=== PATIENT | female | born 1990 | race African-American/Black ===

== ENCOUNTER 2018-03-27 09:08 | Emergency (ER) | payer SELFPAY ==
[2018-03-27] MEDS ORDERED: MORPHINE 4 MG/ML SYR ONE (09:44)
[2018-03-27] MEDS ORDERED: ONDANSETRON 4 MG/2 ML VIAL ONE (09:44)
[2018-03-27] MEDS ORDERED: HYDROCODONE/APAP 10/325 TAB ONE (10:42)
--- NOTE | 2018-03-27 10:58 | RAD REPORT ---
EXAM DESCRIPTION: RAD - Shoulder Left 2 View - 03/27/2018 9:56 am CLINICAL HISTORY: Fall, shoulder pain COMPARISON: March 2015 TECHNIQUE: Internal and external rotation views of the left shoulder were obtained. FINDINGS: There is no fracture or dislocation. No AC joint separation. No significant degenerative c hange. No calcification in the acromial humeral joint space. No rib or upper lung parenchymal abnorma lity. No acute or suspicious findings. IMPRESSION: Negative two-view left shoulder examination.
--- NOTE | 2018-03-27 11:20 | ER ---
Nurse's Notes [facility] Name: Geoff Sharma Age: 27 yrs Sex: Female : 1990 Arrival Date: 03/27/2018 Time: 09:09 Bed 5 Private MD: Diagnosis: Recurrent dislocation, left shoulder Presentation: 03/27 09:12 Presenting complaint: EMS states: Pt c/o L shoulder dislocation, states that she was ph getting out of bed to answer a phone call, became tangled in the blankets and injured her shoulder, reports hx of L shoulder dislocation. Transition of care: patient was not received from another setting of care. Onset of symptoms was March 27, 2018. Risk Assessment: Do you want to hurt yourself or someone else? Patient reports no desire to harm self or others. Initial Sepsis Screen: Does the patient meet any 2 criteria? No. Patient's initial sepsis screen is negative. Does the patient have a suspected source of infection? No. Patient's initial sepsis screen is negative. Care prior to arrival: Medication(s) given: zofran 4 mg, fentanyl 100 mcg IV initiated. 20 GA, in the right antecubital area. 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 - Family history:: not pertinent. - Social history:: Smoking status: Patient/guardian denies using tobacco. - Ebola Screening: : No symptoms or risks identified at this time. - Hospitalizations: : No recent hospitalization is reported. Screenin:18 Abuse screen: Denies threats or abuse. Denies injuries from another. Nutritional ph screening: No deficits noted. Tuberculosis screening: No symptoms or risk factors identified. Fall Risk None identified. Assessment: 09:18 General: Appears in no apparent distress. uncomfortable, slender, well groomed, ph Behavior is cooperative, appropriate for age, crying. Pain: Complains of pain in left shoulder. Neuro: Level of Consciousness is awake, alert, obeys commands, Oriented to person, place, time, situation. Cardiovascular: Capillary refill < 3 seconds in bilateral fingers Patient's skin is warm and dry. Pulses are palpable in left radial artery. Respiratory: Airway is patent Respiratory effort is even, unlabored. Derm: Skin is intact, is healthy with good turgor, Skin is pink, warm \T\ dry. Musculoskeletal: Circulation, motion, and sensation intact. Range of motion: limited in left shoulder. 10:30 Reassessment: Patient appears in no apparent distress at this time. Patient and/or ph family updated on plan of care and expected duration. Pain level reassessed. Patient is alert, oriented x 3, equal unlabored respirations, skin warm/dry/pink. ERP at bedside to speak w/ pt. 11:49 Reassessment: Patient appears in no apparent distress at this time. Patient and/or ph family updated on plan of care and expected duration. Pain level reassessed. Patient is alert, oriented x 3, equal unlabored respirations, skin warm/dry/pink. Pt reports that pain has decreased to 4/10 (down from 8/10), p[t placed in sling and given instructions to follow up w/ orthopedist, d/c home w/ friend. Vital Signs: 09:16 BP 121 / 72; Pulse 85; Resp 18; Temp 98.2; Pulse Ox 100% on R/A; Weight 65.77 kg; ph Height 5 ft. 3 in. (160.02 cm); 09:45 BP 147 / 105; Pulse 102; Resp 18; Pulse Ox 100% on R/A; ph 10:30 BP 120 / 70; Pulse 87; Resp 16; Pulse Ox 100% on R/A; ph 11:52 BP 118 / 64; Pulse 78; Resp 18; Temp 97.9; Pulse Ox 99% on R/A; Pain 4/10; ph 09:16 Body Mass Index 25.69 (65.77 kg, 160.02 cm) ph ED Course: 09:09 Patient arrived in ED. ss 09:11 Howard Haskins MD is Attending Physician. rn 09:11 Annia Mariee RN is Primary Nurse. ph 09:15 Triage completed. ph 09:18 Arm band placed on. ph 09:18 Maintain EMS IV. Dressing intact. Good blood return noted. Site clean \T\ dry. Gauge \T\ ph site: 20 RAC. 09:19 Patient has correct armband on for positive identification. Bed in low position. Call ph light in reach. Side rails up X2. Pulse ox on. NIBP on. Warm blanket given. 09:56 XRAY Shoulder LEFT 2 view In Process Unspecified. EDMS 10:56 XRAY Shoulder (1 View) In Process Unspecified. EDMS 11:19 Pieter Sutton MD is Referral Physician. rn 11:52 No provider procedures requiring assistance completed. IV discontinued, intact, ph bleeding controlled, No redness/swelling at site. Pressure dressing applied. Sling applied to left arm. Administered Medications: 09:43 Drug: morphine 4 mg Route: IVP; Site: right antecubital; ph 15:57 Follow up: Response: No adverse reaction ph 09:43 Drug: Zofran 4 mg Route: IVP; Site: right antecubital; ph 10:15 Follow up: Response: No adverse reaction ph 10:40 Drug: Dennard 10 mg-325 mg 1 tabs Route: PO; ph 11:15 Follow up: Response: No adverse reaction; Pain is decreased ph Outcome: 11:19 Discharge ordered by MD. rn 11:52 Discharged to home ambulatory, with friend. ph 11:52 Condition: good 11:52 Discharge instructions given to patient, Instructed on discharge instructions, follow up and referral plans. medication usage, Demonstrated understanding of instructions, follow-up care, medications. 11:53 Patient left the ED. ph Signatures: Dispatcher [employer] EDMS Howard Haskins MD MD rn Smirch, Shelby, RN RN ss Hall, Patricia, RN RN ph Corrections: (The following items were deleted from the chart) 11:52 09:45 BP 120 / 70; Pulse 87bpm; Resp 16bpm; Pulse Ox 100% RA; ph ph
--- NOTE | 2018-03-27 11:20 | EDPHYS ---
Physician Documentation [facility] Name: Geoff Sharma Age: 27 yrs Sex: Female : 1990 Arrival Date: 03/27/2018 Time: 09:09 Bed 5 Private MD: ED Physician Howard Haskins HPI: 03/27 09:11 This 27 yrs old Black Female presents to ER via Unassigned with complaints of Shoulder rn Pain. 09:11 The patient or guardian complains of decreased range of motion, pain. left shoulder. rn Onset: The symptoms/episode began/occurred just prior to arrival. Modifying factors: the symptoms are alleviated by nothing. The symptoms are aggravated by movement, rotation of arm. Severity of symptoms: At their worst the symptoms were moderate, in the emergency department the symptoms have improved. The patient has experienced a previous episode. The patient has not recently seen a physician. Got out of bed rapidly, left arm wrapped in blanket, feels like dislocated. . 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 - Family history:: not pertinent. - Social history:: Smoking status: Patient/guardian denies using tobacco. - Ebola Screening: : No symptoms or risks identified at this time. - Hospitalizations: : No recent hospitalization is reported. ROS: 09:11 Constitutional: Negative for fever, chills, and weight loss, MS/Extremity: + left rn shoulder injury Exam: 09:11 Constitutional: This is a well developed, well nourished patient who is awake, alert, rn crying and left arm in splint Neck: Trachea midline, no thyromegaly or masses palpated, and no cervical lymphadenopathy. Supple, full range of motion without nuchal rigidity, or vertebral point tenderness. No Meningismus. Chest/axilla: Normal chest wall appearance and motion. Nontender with no deformity. No lesions are appreciated. MS/ Extremity: Pulses equal, no cyanosis. Neurovascular intact. + painful ROM left shoulder, no clavicular tenderness or crepitus Neuro: Awake and alert, GCS 15, oriented to person, place, time, and situation. Motor strength 5/5 in all extremities. Sensory grossly intact. Vital Signs: 09:16 BP 121 / 72; Pulse 85; Resp 18; Temp 98.2; Pulse Ox 100% on R/A; Weight 65.77 kg; ph Height 5 ft. 3 in. (160.02 cm); 09:45 BP 147 / 105; Pulse 102; Resp 18; Pulse Ox 100% on R/A; ph 10:30 BP 120 / 70; Pulse 87; Resp 16; Pulse Ox 100% on R/A; ph 11:52 BP 118 / 64; Pulse 78; Resp 18; Temp 97.9; Pulse Ox 99% on R/A; Pain 4/10; ph 09:16 Body Mass Index 25.69 (65.77 kg, 160.02 cm) ph MDM: 09:11 Patient medically screened. rn 11:17 Differential diagnosis: Anterior dislocation with fracture, Anterior dislocation rn without fracture, Posterior dislocation with fracture, Posterior dislocation without fracture, humeral head fracture, glenoid fracture, DJD, tendonitis. Data reviewed: vital signs, nurses notes, radiologic studies, plain films, and as a result, I will discharge patient. Counseling: I had a detailed discussion with the patient and/or guardian regarding: the historical points, exam findings, and any diagnostic results supporting the discharge/admit diagnosis, radiology results, the need for outpatient follow up, to return to the emergency department if symptoms worsen or persist or if there are any questions or concerns that arise at home. Special discussion: I discussed with the patient/guardian in detail that at this point there is no indication for admission to the hospital. It is understood, however, that if the symptoms persist or worsen the patient needs to return immediately for re-evaluation. 03/27 09:11 Order name: XRAY Shoulder LEFT 2 view; Complete Time: 11:17 rn 03/27 09:40 Order name: XRAY Shoulder (1 View); Complete Time: 11:29 rn 03/27 11:17 Order name: Sling; Complete Time: 11:53 rn Administered Medications: 09:43 Drug: morphine 4 mg Route: IVP; Site: right antecubital; ph 15:57 Follow up: Response: No adverse reaction ph 09:43 Drug: Zofran 4 mg Route: IVP; Site: right antecubital; ph 10:15 Follow up: Response: No adverse reaction ph 10:40 Drug: [place] 10 mg-325 mg 1 tabs Route: PO; ph 11:15 Follow up: Response: No adverse reaction; Pain is decreased ph Disposition: 03/27/18 11:19 Discharged to Home. Impression: Recurrent dislocation, left shoulder. - Condition is Stable. - Discharge Instructions: Shoulder Dislocation. - Prescriptions for Tylenol- Codeine #3 300-30 mg Oral Tablet - take 1 tablet by ORAL route every 6 hours As needed; 20 tablet. - Medication Reconciliation Form, Thank You Letter, Antibiotic Education, Prescription Opioid Use form. - Follow up: Pieter Sutton MD; When: As needed; Reason: Recheck today's complaints, Re-evaluation by your physician. - Problem is new. - Symptoms have improved. Signatures: Dispatcher [employer] EDMS Howard Haskins MD MD rn MarieeAnnia RN RN Corrections: (The following items were deleted from the chart) 11:53 11:19 03/27/2018 11:19 Discharged to Home. Impression: Recurrent dislocation, left ph shoulder. Condition is Stable. Forms are Medication Reconciliation Form, Thank You Letter, Antibiotic Education, Prescription Opioid Use. Follow up: Dr. Pieter Sutton; When: As needed; Reason: Recheck today's complaints, Re-evaluation by your physician. Problem is new. Symptoms have improved. rn
--- NOTE | 2018-03-27 11:25 | RAD REPORT ---
EXAM DESCRIPTION: RAD - Shoulder 1 View - 03/27/2018 10:55 am FINDINGS: Two scapula Y-views were obtained as follow-up to earlier examination. AC joint is normal. Acromial humeral joint space also normal. No dislocation or acute finding.
== END 2018-03-27 11:53 | disposition home or self-care (01) ==
LOC: ER 09:08
DX: M24.412 Recurrent dislocation, left shoulder (principal)
CPT/HCPCS: 73020; 96374; 96375; 99284; J2405

== ENCOUNTER 2019-02-26 05:52 | Emergency (ER) | payer SELFPAY ==
--- OUTSIDE RECORDS SUMMARY | 2019-02-26 05:55 | XMS REPORT ---
:1990 [facility] Address [address] [place] [address] Dr. Rowe [address] [place] [id number] Care Team Providers Name Role Phone Unavailable Unavailable Unavailable Problems This patient has no known problems. Allergies, Adverse Reactions, Alerts This patient has no known allergies or adverse reactions. Medications This patient has no known medications.
--- NOTE | 2019-02-26 06:26 | EDPHYS ---
Physician Documentation [facility] Name: Geoff Sharma Age: 28 yrs Sex: Female : 1990 Arrival Date: 02/26/2019 Time: 05:58 Bed 20 Private MD: ED Physician Jonathan Paulson HPI: 02/26 06:08 This 28 yrs old Black Female presents to ER via Unassigned with complaints of Knot kb Under Arm, Sore on Nipple. 06:09 Pt reports small scab on nipple with slight redness surrounding it for 3 days. Also kb reports knot in right axilla that she noticed recently. Mother recently diagnosed with breast cancer. Onset: The symptoms/episode began/occurred 3 day(s) ago. Severity of symptoms: At their worst the symptoms were mild in the emergency department the symptoms are unchanged. The patient has not experienced similar symptoms in the past. The patient has not recently seen a physician. ROS: 06:09 Constitutional: Negative for fever, chills, and weight loss, Neck: Negative for injury, kb pain, and swelling, Cardiovascular: Negative for chest pain, palpitations, and edema, Respiratory: Negative for shortness of breath, cough, wheezing, and pleuritic chest pain, Abdomen/GI: Negative for abdominal pain, nausea, vomiting, diarrhea, and constipation, Back: Negative for injury and pain, MS/Extremity: Negative for injury and deformity, Neuro: Negative for headache, weakness, numbness, tingling, and seizure. 06:09 Skin: Positive for erythema, of the right nipple, scab. 06:09 Skin: Positive for lump to right axilla. Exam: 06:09 Constitutional: This is a well developed, well nourished patient who is awake, alert, kb and in no acute distress. Head/Face: Normocephalic, atraumatic. Neck: Trachea midline, no thyromegaly or masses palpated, and no cervical lymphadenopathy. Supple, full range of motion without nuchal rigidity, or vertebral point tenderness. No Meningismus. Chest/axilla: Normal chest wall appearance and motion. Nontender with no deformity. No lesions are appreciated. Cardiovascular: Regular rate and rhythm with a normal S1 and S2. No gallops, murmurs, or rubs. Normal PMI, no JVD. No pulse deficits. Respiratory: Lungs have equal breath sounds bilaterally, clear to auscultation and percussion. No rales, rhonchi or wheezes noted. No increased work of breathing, no retractions or nasal flaring. Abdomen/GI: Soft, non-tender, with normal bowel sounds. No distension or tympany. No guarding or rebound. No evidence of tenderness throughout. MS/ Extremity: Pulses equal, no cyanosis. Neurovascular intact. Full, normal range of motion. Neuro: Awake and alert, GCS 15, oriented to person, place, time, and situation. Cranial nerves II-XII grossly intact. Motor strength 5/5 in all extremities. Sensory grossly intact. Cerebellar exam normal. Normal gait. 06:09 Skin: small scabbed area noted to right nipple with slight redness surrounding it. lump noted to right axilla. . MDM: 05:57 Patient medically screened. kb 06:09 Data reviewed: vital signs, nurses notes. Data interpreted: Pulse oximetry: on room air kb is 100 %. Interpretation: normal. Counseling: I had a detailed discussion with the patient and/or guardian regarding: the historical points, exam findings, and any diagnostic results supporting the discharge/admit diagnosis, the need for outpatient follow up, a general surgeon, an OB/Gyne specialist, to return to the emergency department if symptoms worsen or persist or if there are any questions or concerns that arise at home. ED course: Told pt I would prescribe antibiotics to cover any bacterial component, but that she needed to follow up with Surgery or [employer] to have US, mammogram and cancer markers tested. Pt upset that we are not going to do these tests here in the ER. Educated that we cannot do those specific tests in the emergency department. Pt still unhappy with that information. Walked out of room saying "I'm not being billed for this." Stopped at desk and asked for MD. Asked her to have a seat in the room and I would have Dr Paulson come evaluate her as well. Dr Paulson evaluated pt and offered the same treatment and educated pt on need for follow up with Surgery. Pt still refuses antibiotics. Dr Paulson offered to give her information about a breast surgeon in [facility] that specialized in this, but pt left before information could be obtained and given to her. Pt still stating "I'm not being charged for this" as she walked out. Will medically screen pt to accommodate pt.. Administered Medications: No medications were administered Disposition: 06:25 lump in right axilla, local infection of skin (right nipple). kb 19:31 Co-signature as Attending Physician, Jonathan Paulson MD. Disposition: 02/26/19 06:26 Discharged to Home. Impression: Encounter for screening, unspecified. - Condition is Stable. - Follow up: Emergency Department; When: As needed; Reason: Worsening of condition. Follow up: Private Physician; When: 2 - 3 days; Reason: Recheck today's complaints, Continuance of care, Re-evaluation by your physician. Signatures: Patricia Retana, AUGUSTINE-C CORDUROY BRUSHER OPERATOR-Jonathan Rizvi MD MD Hamlet Rudolph RN RN tr5 Corrections: (The following items were deleted from the chart) 06:27 06:09 ED course: Told pt I would prescribe antibiotics to cover any bacterial kb component, but that she needed to follow up with Surgery or [employer] to have US, mammogram and cancer markers tested. Pt upset that we are not going to do these tests here in the ER. Educated that we cannot do those specific tests in the emergency department. Pt still unhappy with that information. Walked out of room saying "I'm not being billed for this." Stopped at desk and asked for MD. Asked her to have a seat in the room and I would have Dr Paulson come evaluate her as well. Dr Paulson evaluated pt and offered the same treatment and educated pt on need for follow up with Surgery. Dr Paulson offered to give her information about a breast surgeon in [facility] that specialized in this, but pt left before information could be obtained and given to her. Pt still stating "I'm not being charged for this" as she walked out. Will medically screen pt to accommodate pt. kb 06:28 06:26 02/26/2019 06:26 Discharged to Home. Impression: Encounter for screening, tr5 unspecified. Condition is Stable. Forms are Medication Reconciliation Form, Thank You Letter, Antibiotic Education, Prescription Opioid Use. Follow up: Emergency Department; When: As needed; Reason: Worsening of condition. Follow up: Private Physician; When: 2 - 3 days; Reason: Recheck today's complaints, Continuance of care, Re-evaluation by your physician. kb
--- NOTE | 2019-02-26 06:28 | ER ---
Nurse's Notes [facility] Name: Geoff Sharma Age: 28 yrs Sex: Female : 1990 Arrival Date: 02/26/2019 Time: 05:58 Bed 20 Private MD: Diagnosis: Encounter for screening, unspecified Assessment: 02/26 06:27 Reassessment: Pt medically screened and declined treatment. tr5 ED Course: 05:57 Patricia Retana FNP-C [facility]. kb 05:57 Jonathan Paulson MD is Attending Physician. kb 05:58 Patient arrived in ED. ds1 06:20 Hamlet Rudolph RN is Primary Nurse. tr5 Administered Medications: No medications were administered Outcome: 06:26 Discharge ordered by . kb 06:28 Patient left the ED. tr5 Signatures: Patricia Retana FNP-C FNP-Ckb [place]ford, Demi ds1 Hamlet Rudolph RN RN tr5
== END 2019-02-26 06:28 | disposition home or self-care (01) ==
LOC: ER 05:52
DX: L08.9 Local infection of the skin and subcutaneous tissue, unspecified (principal); Z13.9 Encounter for screening, unspecified; Z80.3 Family history of malignant neoplasm of breast

== ENCOUNTER 2019-05-31 07:21 | Emergency (ER) | payer SELFPAY ==
--- OUTSIDE RECORDS SUMMARY | 2019-05-31 07:23 | XMS REPORT ---
:1990 [facility] Address [address] [place] [address] Dr. Rowe [address] [place] [id number] Care Team Providers Name Role Phone Unavailable Unavailable Unavailable Problems This patient has no known problems. Allergies, Adverse Reactions, Alerts This patient has no known allergies or adverse reactions. Medications This patient has no known medications.
[2019-05-31] MEDS ORDERED: MORPHINE 4 MG/ML SYR ONE (07:26)
[2019-05-31] MEDS ORDERED: ONDANSETRON 4 MG/2 ML VIAL ONE (07:26)
[2019-05-31] MEDS ORDERED: PROPOFOL 200 MG/20 ML VIAL IV ONE (07:36)
--- NOTE | 2019-05-31 07:50 | ER ---
Nurse's Notes [facility] Name: Geoff Sharma Age: 29 yrs Sex: Female : 1990 Arrival Date: 05/31/2019 Time: 07:23 Bed 4 Private MD: Diagnosis: Recurrent dislocation, left shoulder Presentation: 05/31 07:23 Presenting complaint: EMS states: Pt hx of L shoulder dislocation approx 4 years ago, ph awoke from sleep this morning by extreme pain to L shoulder, obvious deformity. Transition of care: patient was not received from another setting of care. Onset of symptoms was May 31, 2019. Risk Assessment: Do you want to hurt yourself or someone else? Patient reports no desire to harm self or others. Initial Sepsis Screen: Does the patient meet any 2 criteria? No. Patient's initial sepsis screen is negative. Does the patient have a suspected source of infection? No. Patient's initial sepsis screen is negative. Care prior to arrival: None. 07:23 Method Of Arrival: EMS: [facility] 07:23 Acuity: NICA 3 ph Triage Assessment: 07:25 General: Appears in no apparent distress. uncomfortable, Behavior is cooperative, ph crying. Pain: Complains of pain in left shoulder. Neuro: Level of Consciousness is awake, alert, obeys commands, Oriented to person, place, time, situation. Cardiovascular: Capillary refill < 3 seconds in bilateral fingers Patient's skin is warm and dry. Pulses are palpable in right radial artery and left radial artery. Respiratory: Airway is patent Respiratory effort is even, unlabored. Derm: Skin is intact, is healthy with good turgor, Skin is pink, warm \\T\\ dry. Musculoskeletal: Circulation, motion, and sensation intact. Range of motion: limited in left shoulder Bony deformity noted of left shoulder. 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 - Social history:: Smoking status: Patient/guardian denies using tobacco. - Ebola Screening: : No symptoms or risks identified at this time. - Family history:: not pertinent. - Hospitalizations: : No recent hospitalization is reported. Screenin:52 Nutritional screening: No deficits noted. Tuberculosis screening: No symptoms or risk sv factors identified. Fall Risk None identified. 08:00 Abuse screen: Denies threats or abuse. Denies injuries from another. ph Assessment: 07:45 Reassessment: Called and spoke with Bernard in xray to do a post reduction film. sv 07:57 Reassessment: Patient appears in no apparent distress at this time. Patient and/or ph family updated on plan of care and expected duration. Pain level reassessed. Pt awake but remains drowsy, VSS, x ray at bedside, d/c pending xray results. 08:19 Reassessment: Patient appears in no apparent distress at this time. Patient and/or ph family updated on plan of care and expected duration. Pain level reassessed. Pt resting comfortably at this time, on phone attempting to find ride home, d/c pending ride home. 08:50 Reassessment: Patient appears in no apparent distress at this time. Patient and/or ph family updated on plan of care and expected duration. Pain level reassessed. Patient is alert, oriented x 3, equal unlabored respirations, skin warm/dry/pink. Pt states, " I had a ride coming to get me but now she is having car trouble. I am going to try to find someone else." Pt remains drowsy w/ stable vitals, d/c pending ride home. 09:23 Reassessment: Patient appears in no apparent distress at this time. Patient and/or ph family updated on plan of care and expected duration. Pain level reassessed. Patient is alert, oriented x 3, equal unlabored respirations, skin warm/dry/pink. Pt d/c home w/ friend. Vital Signs: 07:25 Resp 22; Temp 97.4; Weight 68.04 kg; Height 5 ft. 4 in. (162.56 cm); Pain 10/10; ph 07:26 BP 117 / 87; Pulse 116; sv 07:40 ph 08:20 BP 113 / 71; Pulse 84; Resp 18; Temp 97.8; Pulse Ox 100% on R/A; Pain 4/10; ph 08:53 BP 103 / 73; Pulse 66; Resp 18; Pulse Ox 100% on R/A; ph 07:25 Body Mass Index 25.75 (68.04 kg, 162.56 cm) ph 07:40 see conscious sedation flow sheet for vitals during procedure ph ED Course: 07:20 Patient has correct armband on for positive identification. Bed in low position. Call sv light in reach. Pulse ox on. NIBP on. 07:22 Inserted saline lock: 22 gauge in right hand, using aseptic technique. Flushed right sv hand with 2 ml normal saline. 07:23 Patient arrived in ED. rn 07:23 Howard Haskins MD is Attending Physician. rn 07:23 Annia Mariee RN is Primary Nurse. ph 07:25 Triage completed. ph 07:26 Arm band placed on Patient placed in an exam room, on a stretcher. ph 07:30 Consent for conscious sedation explained by staff, explained by physician, signed by sv patient. 07:30 Door closed. Noise minimized. Warm blanket given. Pillow given. Head of bed elevated. ph 07:43 Assist provider with reduction of left shoulder using manipulation, Set up for ph procedure. Performed by Howard Haskins MD Immobilized with sling, Patient tolerated well. 07:48 Sling applied to left arm. sv 07:49 Mynor Corrales MD is Referral Physician. rn 08:14 XRAY Shoulder LEFT 2 view In Process Unspecified. EDMS 09:24 IV discontinued, intact, bleeding controlled, No redness/swelling at site. Pressure ph dressing applied. Administered Medications: 07:28 Drug: Zofran 4 mg Route: IVP; Site: right hand; sv 07:40 Follow up: Response: No adverse reaction sv 07:30 Drug: morphine 4 mg {Note: RASS3.} Route: IVP; Site: right hand; sv 07:40 Follow up: Response: No adverse reaction; Pain is decreased; RASS: Alert and Calm (0) sv 07:40 Drug: Propofol 20 mg {Note: given by Dr Haskins.} Route: IVP; Site: right hand; sv 07:51 Follow up: Response: No adverse reaction sv 07:42 Drug: Propofol 20 mg {Note: given by Dr Haskins.} Route: IVP; Site: right hand; sv 07:51 Follow up: Response: No adverse reaction sv Outcome: 07:50 Discharge ordered by MD. rn 09:24 Discharged to home ambulatory. ph 09:24 Condition: good 09:24 Discharge instructions given to patient, Instructed on discharge instructions, follow up and referral plans. Demonstrated understanding of instructions, follow-up care. 09:25 Patient left the ED. ph Signatures: Dispatcher [employer] Ashley Polo, Howard Carreon RN, MD MD rn Hall, Patricia, RN RN
--- NOTE | 2019-05-31 07:51 | EDPHYS ---
Physician Documentation [facility] Name: Geoff Sharma Age: 29 yrs Sex: Female : 1990 Arrival Date: 05/31/2019 Time: 07:23 Bed 4 Private MD: ED Physician Howard Haskins HPI: 05/31 07:26 This 29 yrs old Black Female presents to ER via EMS with complaints of shoulder rn dislocation. 07:26 The patient or guardian complains of decreased range of motion, an injury. left rn shoulder. Onset: The symptoms/episode began/occurred just prior to arrival. Modifying factors: the symptoms are alleviated by nothing. The symptoms are aggravated by nothing. Associated signs and symptoms: Pertinent positives: severe pain, Pertinent negatives: chest pain, neck pain. Severity of symptoms: At their worst the symptoms were moderate, in the emergency department the symptoms are unchanged. The patient has experienced similar episodes in the past. The patient has not recently seen a physician. Reports dislocated left shoulder while asleep, has had multiple dislocations in past, always left shoulder, did not fall, hurts to move left shoulder. No weakness or numbness. . 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 - Social history:: Smoking status: Patient/guardian denies using tobacco. - Ebola Screening: : No symptoms or risks identified at this time. - Family history:: not pertinent. - Hospitalizations: : No recent hospitalization is reported. ROS: 07:26 Constitutional: Negative for fever, chills, and weight loss, MS/Extremity: + left rn shoulder pain Exam: 07:26 Constitutional: This is a well developed, well nourished patient who is awake, alert, rn appears in distress MS/ Extremity: Pulses equal, no cyanosis. Neurovascular intact. Painful ROM left shoulder, held in passive flexion. Appears anteriorly dislocated. Vital Signs: 07:25 Resp 22; Temp 97.4; Weight 68.04 kg; Height 5 ft. 4 in. (162.56 cm); Pain 10/10; ph 07:26 BP 117 / 87; Pulse 116; sv 07:40 ph 08:20 BP 113 / 71; Pulse 84; Resp 18; Temp 97.8; Pulse Ox 100% on R/A; Pain 4/10; ph 08:53 BP 103 / 73; Pulse 66; Resp 18; Pulse Ox 100% on R/A; ph 07:25 Body Mass Index 25.75 (68.04 kg, 162.56 cm) ph 07:40 see conscious sedation flow sheet for vitals during procedure ph Procedures: 08:05 Reduction: of the left shoulder, using traction, manipulation, Immobilized with rn shoulder immobilizer. Patient tolerated well. Post reduction film - reveals normal alignment. Moderate sedation: Pre-procedure assessment: the patient has been NPO 10 hour(s) prior to arrival, ASA physical classification: I - healthy, no underlying organic disease, Airway assessment: able to hyperextend neck, able to maintain airway, can open mouth without difficulty, Monitoring during procedure: financial services sales representative, continuous pulse oximetry, nurse at bedside at all times, Medications employed: propofol, Post-procedure assessment: the patient is mildly sedated, Respiratory status: even and unlabored, a reversal agent was not used. MDM: 07:23 Patient medically screened. rn 07:47 Differential diagnosis: Anterior dislocation without fracture. Data reviewed: vital rn signs, nurses notes, radiologic studies, and as a result, I will discharge patient. Counseling: I had a detailed discussion with the patient and/or guardian regarding: the historical points, exam findings, and any diagnostic results supporting the discharge/admit diagnosis, radiology results, the need for outpatient follow up, to return to the emergency department if symptoms worsen or persist or if there are any questions or concerns that arise at home. Response to treatment: the patient's condition has returned to base line. Special discussion: I discussed with the patient/guardian in detail that at this point there is no indication for admission to the hospital. It is understood, however, that if the symptoms persist or worsen the patient needs to return immediately for re-evaluation. Based on the history and exam findings, there is no indication for further emergent testing or inpatient evaluation. I discussed with the patient/guardian the need to see the orthopedic surgeon for further evaluation of the symptoms. ED course: Pt very uncomfortable, xray delayed, decision made to reduce prior to imaging given classic presentation and recurrent dislocation. Given propofol, reduction successful, pain resolved. . 05/31 07:24 Order name: XRAY Shoulder LEFT 2 view rn 05/31 07:24 Order name: IV Start; Complete Time: 07:25 rn 05/31 07:25 Order name: Conscious Sedation; Complete Time: 07:49 rn Administered Medications: 07:28 Drug: Zofran 4 mg Route: IVP; Site: right hand; sv 07:40 Follow up: Response: No adverse reaction sv 07:30 Drug: morphine 4 mg {Note: RASS3.} Route: IVP; Site: right hand; sv 07:40 Follow up: Response: No adverse reaction; Pain is decreased; RASS: Alert and Calm (0) sv 07:40 Drug: Propofol 20 mg {Note: given by Dr Haskins.} Route: IVP; Site: right hand; sv 07:51 Follow up: Response: No adverse reaction sv 07:42 Drug: Propofol 20 mg {Note: given by Dr Haskins.} Route: IVP; Site: right hand; sv 07:51 Follow up: Response: No adverse reaction sv Disposition: 05/31/19 07:50 Discharged to Home. Impression: Recurrent dislocation, left shoulder. - Condition is Stable. - Discharge Instructions: Shoulder Dislocation. - Medication Reconciliation Form, Thank You Letter, Antibiotic Education, Prescription Opioid Use form. - Follow up: Mynor Corrales MD; When: As needed; Reason: Recheck today's complaints, Re-evaluation by your physician. - Problem is new. - Symptoms are resolved. Signatures: Dispatcher [employer] Ashley Polo RN RN sv Nieto, Roman, MD MD rn Hall, Patricia, RN RN ph Corrections: (The following items were deleted from the chart) 09:25 07:50 05/31/2019 07:50 Discharged to Home. Impression: Recurrent dislocation, left ph shoulder. Condition is Stable. Forms are Medication Reconciliation Form, Thank You Letter, Antibiotic Education, Prescription Opioid Use. Follow up: Mynor Corrales; When: As needed; Reason: Recheck today's complaints, Re-evaluation by your physician. Problem is new. Symptoms are resolved. rn
--- NOTE | 2019-05-31 08:52 | RAD REPORT ---
EXAM DESCRIPTION: RAD - Shoulder Left 2 View - 05/31/2019 8:07 am CLINICAL HISTORY: Left shoulder pain, possible dislocation COMPARISON: None. TECHNIQUE: Single view of the left shoulder obtained. FINDINGS: No fracture is seen. Sternoclavicular and acromioclavicular joints are normal. Glenohumera l joint space is normal. Humeral head is in a normal position. No anterior dislocation. Posterior dis location is doubtful but not entirely excluded on a single view exam. If there are clinical concerns for posterior dislocation or patient has reduced range of motion, scapular Y or transaxillary views c ould be obtained. IMPRESSION: Negative single view left shoulder examination. Posterior dislocations of the humeral head can sometimes mimic a normal shoulder. There are clinical concerns for posterior dislocation, scapular Y or transaxillary views could be obtained.
[2019-05-31 11:56] VITALS: TEMP 97.8; O2SAT 100
[2019-05-31 11:58] VITALS: BP 103/73
== END 2019-05-31 09:25 | disposition home or self-care (01) ==
LOC: ER 07:21
PROC: 0RSKXZZ Reposition Left Shoulder Joint, External Approach (ICD-10-PCS; principal; 2019-05-31)
DX: M24.412 Recurrent dislocation, left shoulder (principal)
CPT/HCPCS: 96374; 96375; 99285; J2405; J2704

== ENCOUNTER 2020-10-02 03:27 | Emergency (ER) | payer SELFPAY ==
--- OUTSIDE RECORDS SUMMARY | 2020-10-02 03:30 | XMS REPORT | Continuity of Care Document ---
:1990 Author Organization [facility] t Address [address] [place] [address] [address] [place] [address] Care Team Providers Name Role Phone Unavailable Unavailable Unavailable Problems This patient has no known problems. Allergies, Adverse Reactions, Alerts This patient has no known allergies or adverse reactions. Medications This patient has no known medications. Procedures This patient has no known procedures. Results This patient has no known results.
--- NOTE | 2020-10-02 04:49 | EDPHYS ---
Physician Documentation [facility] Name: Geoff Sharma Age: 30 yrs Sex: Female : 1990 Arrival Date: 10/02/2020 Time: 03:28 Bed 13 Private MD: ED Physician Andrew Kennedy HPI: 10/02 04:42 This 30 yrs old Black Female presents to ER via EMS with complaints of Shoulder Pain. [facility] 04:42 The patient or guardian complains of decreased range of motion, pain, tenderness. left filiberto shoulder. Context: The problem was sustained at home, resulted from an unknown reason, The patient experiences decreased range of motion. Onset: The symptoms/episode began/occurred just prior to arrival. Modifying factors: the symptoms are alleviated by remaining still, The symptoms are aggravated by movement. Associated signs and symptoms: The patient has no apparent associated signs or symptoms. Severity of symptoms: At their worst the symptoms were mild, in the emergency department the symptoms have improved. Treatment prior to arrival includes: no previous treatment. The patient has not experienced similar symptoms in the past. 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 - Social history:: Smoking status: Patient denies any tobacco usage or history of. - Family history:: not pertinent. ROS: 04:42 Constitutional: Negative for fever, chills, and weight loss, Eyes: Negative for injury, filiberto pain, redness, and discharge, ENT: Negative for injury, pain, and discharge, Neck: Negative for injury, pain, and swelling, Cardiovascular: Negative for chest pain, palpitations, and edema, Respiratory: Negative for shortness of breath, cough, wheezing, and pleuritic chest pain, Abdomen/GI: Negative for abdominal pain, nausea, vomiting, diarrhea, and constipation, Back: Negative for injury and pain, : Negative for injury, bleeding, discharge, and swelling, Skin: Negative for injury, rash, and discoloration, Neuro: Negative for headache, weakness, numbness, tingling, and seizure, Psych: Negative for depression, anxiety, suicide ideation, homicidal ideation, and hallucinations, Allergy/Immunology: Negative for hives, rash, and allergies, Endocrine: Negative for neck swelling, polydipsia, polyuria, polyphagia, and marked weight changes, Hematologic/Lymphatic: Negative for swollen nodes, abnormal bleeding, and unusual bruising. 04:42 MS/extremity: Positive for decreased range of motion, pain, tenderness, of the anterior aspect of left shoulder and posterior aspect of left shoulder. Exam: 04:42 Constitutional: This is a well developed, well nourished patient who is awake, alert, filiberto and in no acute distress. Head/Face: Normocephalic, atraumatic. Eyes: Pupils equal round and reactive to light, extra-ocular motions intact. Lids and lashes normal. Conjunctiva and sclera are non-icteric and not injected. Cornea within normal limits. Periorbital areas with no swelling, redness, or edema. ENT: Nares patent. No nasal discharge, no septal abnormalities noted. Tympanic membranes are normal and external auditory canals are clear. Oropharynx with no redness, swelling, or masses, exudates, or evidence of obstruction, uvula midline. Mucous membranes moist. Neck: Trachea midline, no thyromegaly or masses palpated, and no cervical lymphadenopathy. Supple, full range of motion without nuchal rigidity, or vertebral point tenderness. No Meningismus. Chest/axilla: Normal chest wall appearance and motion. Nontender with no deformity. No lesions are appreciated. Cardiovascular: Regular rate and rhythm with a normal S1 and S2. No gallops, murmurs, or rubs. Normal PMI, no JVD. No pulse deficits. Respiratory: Lungs have equal breath sounds bilaterally, clear to auscultation and percussion. No rales, rhonchi or wheezes noted. No increased work of breathing, no retractions or nasal flaring. Abdomen/GI: Soft, non-tender, with normal bowel sounds. No distension or tympany. No guarding or rebound. No evidence of tenderness throughout. Back: No spinal tenderness. No costovertebral tenderness. Full range of motion. Skin: Warm, dry with normal turgor. Normal color with no rashes, no lesions, and no evidence of cellulitis. MS/ Extremity: Pulses equal, no cyanosis. Neurovascular intact. Full, normal range of motion. Neuro: Awake and alert, GCS 15, oriented to person, place, time, and situation. Cranial nerves II-XII grossly intact. Motor strength 5/5 in all extremities. Sensory grossly intact. Cerebellar exam normal. Normal gait. Vital Signs: 03:35 BP 137 / 89; Pulse 84; Resp 17; Temp 98.8; Pulse Ox 100% ; Pain 10/10; rr5 04:57 BP 125 / 80; Pulse 80; Resp 16; Pulse Ox 98% ; rr5 MDM: 03:39 Patient medically screened. [facility] 04:45 Differential diagnosis: Anterior dislocation without fracture, Posterior dislocation filiberto without fracture, DJD, tendonitis. Data reviewed: vital signs, nurses notes, radiologic studies, plain films. Data interpreted: Pulse oximetry: on room air Arterial blood gas: is normal. Test interpretation: by ED physician or midlevel provider: plain radiologic studies. Counseling: I had a detailed discussion with the patient and/or guardian regarding: the historical points, exam findings, and any diagnostic results supporting the discharge/admit diagnosis, lab results, radiology results, the need for outpatient follow up, for definitive care, a orthopedic surgeon. 10/02 03:45 Order name: XRAY Shoulder LEFT 2 view tt3 10/02 03:52 Order name: Chest Single View XRAY [facility] 10/02 04:42 Order name: Shoulder Immobilizer; Complete Time: 04:57 filiberto 10/02 04:42 Order name: Ice pack; Complete Time: 04:57 [facility] Administered Medications: 04:43 Drug: [place] 10 mg-325 mg 1 tabs {Note: rass 0.} Route: PO; rr5 04:59 Follow up: Response: No adverse reaction; Medication administered at discharge.; RASS: rr5 Alert and Calm (0) Disposition: 10/02/20 04:48 Discharged to Home. Impression: Recurrent dislocation, left shoulder - self reduced. - Condition is Stable. - Discharge Instructions: Cast or Splint Care, Adult, Shoulder Dislocation, Shoulder Dislocation, Unpi-am-Oelx. - Prescriptions for Ibuprofen 600 mg Oral Tablet - take 1 tablet by ORAL route every 6 hours As needed take with food; 20 tablet. - Medication Reconciliation Form, Thank You Letter, Antibiotic Education, Prescription Opioid Use form. - Follow up: Pieter Sutton MD; When: 2 - 3 days; Reason: Recheck today's complaints, Re-evaluation by your physician. - Problem is new. - Symptoms have improved. Signatures: Dispatcher [employer] EDMS Paolo López, RN RN Andrew Roque MD MD cha Roque, Raymond, RN RN rr5 Corrections: (The following items were deleted from the chart) 04:15 03:52 Chest Single View+RAD.[email or web address].BRZ ordered. [facility] 04:59 04:48 10/02/2020 04:48 Discharged to Home. Impression: Recurrent dislocation, left rr5 shoulder - self reduced. Condition is Stable. Forms are Medication Reconciliation Form, Thank You Letter, Antibiotic Education, Prescription Opioid Use. Follow up: Dr. Pieter Sutton; When: 2 - 3 days; Reason: Recheck today's complaints, Re-evaluation by your physician. Problem is new. Symptoms have improved. filiberto
--- NOTE | 2020-10-02 04:49 | ER ---
Nurse's Notes [facility] Name: Geoff Sharma Age: 30 yrs Sex: Female : 1990 Arrival Date: 10/02/2020 Time: 03:28 Bed 13 Private MD: Diagnosis: Recurrent dislocation, left shoulder-self reduced Presentation: 10/02 03:35 Chief complaint: EMS states: her left shoulder pop out of socket. no trauma noted, has rr5 a previous history for the same complaint. now it pop back but complaining of severe pain. Coronavirus screen: Client denies travel out of the [place] in the last 14 days. At this time, the client does not indicate any symptoms associated with coronavirus-19. Ebola Screen: Patient negative for fever greater than or equal to 101.5 degrees Fahrenheit, and additional compatible Ebola Virus Disease symptoms Patient denies exposure to infectious person. Patient denies travel to an Ebola-affected area in the 21 days before illness onset. Initial Sepsis Screen: Does the patient meet any 2 criteria? No. Patient's initial sepsis screen is negative. Does the patient have a suspected source of infection? No. Patient's initial sepsis screen is negative. Risk Assessment: Do you want to hurt yourself or someone else? Patient reports no desire to harm self or others. Onset of symptoms was October 02, 2020 at 02:00. 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 - Social history:: Smoking status: Patient denies any tobacco usage or history of. - Family history:: not pertinent. Screenin:37 Abuse screen: Denies threats or abuse. Denies injuries from another. Nutritional rr5 screening: No deficits noted. Tuberculosis screening: No symptoms or risk factors identified. Fall Risk None identified. Total Elder Fall Scale indicates No Risk (0-24 pts). Assessment: 03:38 General: Appears in no apparent distress. uncomfortable, Behavior is cooperative, rr5 crying. Pain: Complains of pain in anterior aspect of left shoulder Pain currently is 10 out of 10 on a pain scale. Quality of pain is described as aching, Pain began suddenly, Is intermittent. Neuro: Level of Consciousness is awake, alert, obeys commands, Oriented to person, place, time, situation. Cardiovascular: Capillary refill < 3 seconds Patient's skin is warm and dry. Respiratory: Airway is patent Respiratory effort is even, unlabored, Respiratory pattern is regular, symmetrical. GI: No signs and/or symptoms were reported involving the gastrointestinal system. : No signs and/or symptoms were reported regarding the genitourinary system. EENT: No signs and/or symptoms were reported regarding the EENT system. Derm: Skin is intact, is healthy with good turgor, Skin temperature is warm. Musculoskeletal: Capillary refill < 3 seconds, Reports pain in anterior aspect of left shoulder Pain is 10 out of 10 on a pain scale. 04:57 Reassessment: Patient appears in no apparent distress at this time. Patient is alert, rr5 oriented x 3, equal unlabored respirations, skin warm/dry/pink. discharge instruction given and explained without complaints made Patient states feeling better. Patient states symptoms have improved. 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 rr5 Vital Signs: 03:35 BP 137 / 89; Pulse 84; Resp 17; Temp 98.8; Pulse Ox 100% ; Pain 10/10; rr5 04:57 BP 125 / 80; Pulse 80; Resp 16; Pulse Ox 98% ; rr5 ED Course: 03:28 Patient arrived in ED. cl3 03:28 Arm band placed on. sg 03:34 Khanh Beach RN is Primary Nurse. rr5 03:37 Triage completed. rr5 03:37 Patient has correct armband on for positive identification. Placed in gown. Bed in low rr5 position. Call light in reach. Side rails up X2. Pulse ox on. NIBP on. 03:39 Andrew Kennedy MD is Attending Physician. ifliberto 04:24 Chest Single View XRAY In Process Unspecified. EDMS 04:24 XRAY Shoulder LEFT 2 view In Process Unspecified. EDMS 04:47 Pieter Sutton MD is Referral Physician. filiberto 04:50 Shoulder immobilizer applied on left shoulder. rr5 04:57 No provider procedures requiring assistance completed. Patient did not have IV access rr5 during this emergency room visit. Administered Medications: 04:43 Drug: Brilliant 10 mg-325 mg 1 tabs {Note: rass 0.} Route: PO; rr5 04:59 Follow up: Response: No adverse reaction; Medication administered at discharge.; RASS: rr5 Alert and Calm (0) Outcome: 04:48 Discharge ordered by . filiberto 04:57 Discharged to home ambulatory. rr5 04:57 Condition: stable 04:57 Discharge instructions given to patient, Instructed on discharge instructions, follow up and referral plans. medication usage, Demonstrated understanding of instructions, follow-up care, wound care, Prescriptions given X 1. 04:59 Patient left the ED. rr5 Signatures: Dispatcher [employer] EDMS Paolo López RN Andrew Mims MD MD cha Roque, Raymond, RN RN rr5 Иван Saucedo cl3
[2020-10-02] MEDS ORDERED: HYDROCODONE/APAP 10/325 TAB ONE (05:01)
[2020-10-02 05:04] VITALS: TEMP 98.8
[2020-10-02 05:05] VITALS: BP 125/80; O2SAT 98
--- NOTE | 2020-10-02 08:22 | RAD REPORT ---
EXAM DESCRIPTION: RAD - Shoulder Left 2 View - 10/02/2020 4:24 am CLINICAL HISTORY: Left shoulder pain FINDINGS: No fracture or dislocation is seen. Mild osteoarthritis of the AC joint.
--- NOTE | 2020-10-02 10:56 | RAD REPORT ---
EXAM DESCRIPTION: RAD - Chest Single View - 10/02/2020 4:24 am CLINICAL HISTORY: PAIN COMPARISON: None. FINDINGS: Single frontal radiograph view of the chest. Cardiomediastinal silhouette: Normal size and contour. Lungs: No consolidation, pneumothorax, or pleural effusion. Bones: No acute osseous abnormality. The left shoulder is incompletely evaluated on this study. Upper abdomen: No abnormality identified. IMPRESSION: 1. No acute pulmonary process identified. Electronically signed by: Jose R Mccollum 10/02/2020 4:49 AM CDT Due to temporary technical issues with the PACS/Fluency reporting system, reports are being signed by the in house radiologists without review as a courtesy to insure prompt reporting. The interpreting radiologist is fully responsible for the content of the report.
== END 2020-10-02 04:59 | disposition home or self-care (01) ==
LOC: ER 03:27
DX: M24.412 Recurrent dislocation, left shoulder (principal)
CPT/HCPCS: 71045; 99284